=== PATIENT | male | born 1965 | race African-American/Black ===

== ENCOUNTER → 2018-07-16 11:56 | Outpatient (CLI) | payer BC ==
--- NOTE | 2018-07-20 09:40 | ST ---
PATIENT:QUIN DEVLIN MEDICAL RECORD: [id number] SEX: M LOCATION:[facility] ORDER #: ADMISSION DATE: 07/16/18 AGE OF PATIENT: 53 REFERRING PHYSICIAN: INTERPRETING PHYSICIAN: ABEL ZAMORA MD DATE OF SERVICE: 07/16/2018 INDICATION: Chest pain compatible with angina. TECHNIQUE: He was exercised on standard Lexiscan protocol with 32 mCi of sestamibi injected at peak stress, 11 mCi used previously for rest images. FINDINGS: Gated SPECT reveals preserved ejection fraction at 62% with good wall motion and thickening and brightening throughout all segments. SPECT imaging Cardiolite was used as myocardial fusion agent. There is homogeneous uptake throughout all segments at rest and stress with no evidence of inducible ischemia or previous infarction. OVERALL IMPRESSION: 1. This is a normal nuclear stress test with no evidence of inducible ischemia or previous infarction. 2. Gated SPECT reveals a preserved ejection fraction at 62%. In this patient with ongoing symptomatology, the current scan does not suggest the presence of hemodynamically significant coronary artery disease. Evaluate noncardiac etiology of chest pain. TRANSINT:[id number] Voice Confirmation ID: [id number] DOCUMENT ID: [id number] cc: Dr. Brianda Sandoval ABEL ZAMORA MD at 0940 CC: DR. BRIANDA SANDOVAL [id number] DICTATION DATE: 07/17/18 1014 FUEL CELL DESIGNER: 07/17/18 2306 DEP CLI 07/16/18 [place] [id number]
== END | disposition home or self-care (01) ==
LOC: D.HCCARDIO 11:30
PROVIDERS: ATTEND Internal Medicine Cardiovascular Disease
DX: I20.9 Angina pectoris, unspecified (principal)